=== PATIENT | female | born 2000 | race African-American/Black ===

== ENCOUNTER 2023-02-22 10:37 | Inpatient (IN) | payer OTHER ==
[2023-02-22] MEDS ORDERED: hydrALAZINE 20 MG/ML VIAL SLOW IVP PRN ×2 (10:56→16:17)
[2023-02-22] MEDS ORDERED: Calcium Gluc 4.6 MEQ/10 ML (100 MG/ML) SLOW IVP PRN ×2 (11:21→16:17)
[2023-02-22] MEDS ORDERED: Labetalol HCl 100 MG/20 ML VIAL SLOW IVP PRN ×3 (11:21)
[2023-02-22] MEDS ORDERED: Lorazepam 2 MG/ML VIAL SLOW IVP PRN ×2 (11:21→16:17)
[2023-02-22] MEDS ORDERED: Labetalol HCl 100 MG/20 ML VIAL ONE (11:22)
[2023-02-22] MEDS ORDERED: Magnesium Sulfate 20 gm/500 ml 20 GM/500 ML BAG ONE (11:23)
[2023-02-22] MEDS ORDERED: Magnesium Sulfate 20 gm/500 ml 20 GM/500 ML BAG IVPB SCH (11:30)
[2023-02-22] MEDS ORDERED: Lactated Ringer's 1,000 ML IV SCH (11:30)
[2023-02-22 12:20] VITALS: BMI 30.5
[2023-02-22 12:42] LABS: Hemoglobin 10.9 g/dL (12.0-15.5); Mean Corpuscular HGB CONC 34.1 g/dL (32.0-36.0); Mean Corpuscular Hemoglobin 28.3 pg (27.0-33.0); Mean Corpuscular Volume 83.1 fl (81.6-98.3); Platelet Count 52 10x3/uL (150-450); RBC Distribution Width 14.8 % (11.5-14.5); Red Blood Cell (RBC) Count 3.85 10x6/uL (3.90-5.03); White Blood Cell (WBC) Count 5.8 10x3/uL (3.5-10.5)
[2023-02-22 12:46] LABS: ALT (SGPT) 60 U/L (8-55); AST (SGOT) 72 U/L (5-34); Albumin 3.1 g/dL (3.5-5.0); Alkaline Phosphatase 173 U/L (40-100); Anion Gap 13 mmol/L (10-20); BUN (Urea Nitrogen) 9 mg/dL (7.0-18.7); Bilirubin, Total 0.9 mg/dL (0.2-1.2); Calc. Creatinine Clearance 195 mL/min (70-130); Calcium 8.7 mg/dL (7.8-10.44); Carbon Dioxide 20 mmol/L (22-29); Chloride 109 mmol/L (98-107); Estimated GFR 119; Globulin 2.7 g/dL (2.4-3.5); Glucose 68 mg/dL (70-105); Potassium 3.7 mmol/L (3.5-5.1); Protein, Total 5.8 g/dL (6.0-8.3); Sodium 138 mmol/L (136-145)
[2023-02-22] MEDS ORDERED: Labetalol HCl 100 MG TAB PO SCH (13:00)
[2023-02-22 13:30] LABS: Hematocrit 32.3 % (34.9-44.5); Hemoglobin 10.9 g/dL (12.0-15.5); Mean Corpuscular HGB CONC 33.7 g/dL (32.0-36.0); Mean Corpuscular Hemoglobin 28.1 pg (27.0-33.0); Mean Corpuscular Volume 83.2 fl (81.6-98.3); Mean Platelet Volume 10.5 fl (7.4-10.4); Platelet Count 52 10x3/uL (150-450); RBC Distribution Width 14.9 % (11.5-14.5); Red Blood Cell (RBC) Count 3.88 10x6/uL (3.90-5.03); White Blood Cell (WBC) Count 6.1 10x3/uL (3.5-10.5)
[2023-02-22] MEDS ORDERED: hydrALAZINE 20 MG/ML VIAL ONE (13:30)
[2023-02-22] MEDS ORDERED: CEFAZOLIN 2 GM VIAL ONE (13:31)
[2023-02-22] MEDS ORDERED: SUGAMMADEX SODIUM 200 MG/2 ML VIAL ONE (13:47)
[2023-02-22] MEDS ORDERED: Fentanyl 250 MCG/5 ML VIAL ONE (13:47)
[2023-02-22] MEDS ORDERED: PROPOFOL 20 ML ONE (13:47)
[2023-02-22] MEDS ORDERED: Succinylcholine 200 MG/10 ml SYRINGE FS ONE (13:48)
[2023-02-22] MEDS ORDERED: Ondansetron PF 4 MG/2 ML Vial ONE (13:48)
[2023-02-22] MEDS ORDERED: Dexamethasone 4 mg/ml Vial ONE (13:48)
[2023-02-22] MEDS ORDERED: Rocuronium Bromide 10 MG/ML (10ML VIAL) ONE (13:48)
[2023-02-22] MEDS ORDERED: Tranexamic Acid 1,000 MG/10 ML VIAL ONE (14:08)
[2023-02-22] MEDS ORDERED: Misoprostol 200 MCG TAB ONE ×2 (14:08→14:12)
[2023-02-22] MEDS ORDERED: KETAMINE 100 MG/ML (5ML VIAL) ONE (14:26)
[2023-02-22] MEDS ORDERED: Oxytocin 10 UNITS/ML VIAL ONE (14:26)
[2023-02-22] MEDS ORDERED: fentaNYL 50 mcg/mL 1 mL Vial SLOW IVP PRN (14:57)
[2023-02-22] MEDS ORDERED: Ondansetron PF 4 MG/2 ML Vial IVP PRN ×3 (14:57→16:17)
[2023-02-22] MEDS ORDERED: Meperidine HCl/PF 25 MG/ML VIAL SLOW IVP PRN (14:57)
[2023-02-22] MEDS ORDERED: diphenhydrAMINE 25 MG CAP PO PRN ×2 (14:59→16:17)
[2023-02-22] MEDS ORDERED: Naloxone HCl 0.4 mg/ml Vial IV PRN (14:59)
[2023-02-22] MEDS ORDERED: diphenhydrAMINE 50 MG/ML VIAL IVP PRN (14:59)
[2023-02-22] MEDS ORDERED: Promethazine HCl 25 MG/ML VIAL IM PRN ×2 (14:59→16:17)
[2023-02-22] MEDS ORDERED: FENTANYL 500 MCG/10 ML VIAL 2,000 MCG in Sodium Chloride 0.9% 60 ML IV PRN (14:59)
[2023-02-22] MEDS ORDERED: diphenhydrAMINE 50 MG/ML VIAL IM PRN (14:59)
[2023-02-22] MEDS ORDERED: Communication Order-Pharmacy FS SCH (15:00)
[2023-02-22] MEDS ORDERED: FENTANYL 500 MCG/10 ML VIAL 1,000 MCG in Sodium Chloride 0.9% 30 ML IV PRN (15:15)
[2023-02-22] MEDS ORDERED: Bisacodyl 10 MG SUPP PR PRN (16:17)
[2023-02-22] MEDS ORDERED: HYDROcodone/Acetaminophen 5/325 mg Tablet PO PRN (16:17)
[2023-02-22] MEDS ORDERED: Boostrix 0.5 ML (Tdap) VIAL (>/=7 yrs of age) IM ONE (16:17)
[2023-02-22] MEDS ORDERED: Meperidine HCl/PF 25 MG/ML VIAL IM PRN (16:17)
[2023-02-22] MEDS ORDERED: Lanolin Ointment 7 GM TUBE TOP PRN (16:17)
[2023-02-22] MEDS ORDERED: Simethicone Chewable 80 MG TAB PO PRN (16:17)
[2023-02-22] MEDS ORDERED: Oxytocin 30 units/NS 500 ML 500 ML IV SCH (16:17)
[2023-02-22] MEDS ORDERED: ADMIXTURE FEE IVPB SCH (17:00)
[2023-02-22] MEDS ORDERED: NICARDIPINE IVPB SCH (17:00)
[2023-02-22] MEDS ORDERED: SODIUM CHLORIDE IVPB SCH (17:00)
[2023-02-22] MEDS ORDERED: niCARdipine 25 MG in Sodium Chloride 0.9% 250 ML 250 ML IVPB SCH (17:15)
[2023-02-22] MEDS: Labetalol HCl 100 MG TAB PO SCH (18:18)
[2023-02-22] MEDS: Magnesium Sulfate 20 gm/500 ml 20 GM/500 ML BAG IVPB SCH (21:12)
[2023-02-22] MEDS: Ibuprofen 800 MG TAB PO SCH (21:13)
[2023-02-22] MEDS: Docusate 100 MG CAP PO SCH (21:13)
[2023-02-22] MEDS: Ferrous Sulfate 325 MG TAB PO SCH (21:13)
[2023-02-22] MEDS: niCARdipine 25 MG in Sodium Chloride 0.9% 250 ML 250 ML IVPB SCH (21:15)
[2023-02-23] MEDS: Labetalol HCl 100 MG TAB PO SCH (03:28)
[2023-02-23 04:16] LABS: Bilirubin Neg (Negative); Blood, Urine 25 (Negative); Clarity Clear (Clear); Glucose, Urine (Dipstick) Normal (Negative); Ketone, Urine Negative (Negative); Leukocyte 25 (Negative); Nitrite Negative (Negative); Protein, Urine (Dipstick) 100 mg/dl (Neg-Trace); Urobilinogen Normal mg/dL (Less than 2)
[2023-02-23] MEDS: niCARdipine 25 MG in Sodium Chloride 0.9% 250 ML 250 ML IVPB SCH ×3 (04:21→13:06)
[2023-02-23 04:38] LABS: ALT (SGPT) 48 U/L (8-55); AST (SGOT) 46 U/L (5-34); Albumin 3.1 g/dL (3.5-5.0); Alkaline Phosphatase 155 U/L (40-100); Anion Gap 16 mmol/L (10-20); BUN (Urea Nitrogen) 10 mg/dL (7.0-18.7); Bilirubin, Total 0.5 mg/dL (0.2-1.2); Calc. Creatinine Clearance 188 mL/min (70-130); Carbon Dioxide 16 mmol/L (22-29); Chloride 106 mmol/L (98-107); Estimated GFR 113; Globulin 2.8 g/dL (2.4-3.5); Glucose 119 mg/dL (70-105); Potassium 4.1 mmol/L (3.5-5.1); Protein, Total 5.9 g/dL (6.0-8.3); Sodium 134 mmol/L (136-145)
[2023-02-23 04:42] LABS: INR-International Normal Ratio 0.9; Magnesium 6.2 mg/dL (1.7-2.2); PTT 26.3 sec (22.0-33.0); Prothrombin Time 9.2 sec (9.5-12.1)
[2023-02-23 04:56] LABS: RBC/HPF 0-3 HPF (0-3); Squamous Epithelial 0-3 HPF (0-3)
[2023-02-23 05:00] LABS: #Monocytes 0.5 10x3/uL (0.0-1.1); #Neutrophils 9.1 10x3/uL (1.5-8.4); %Lymphocytes 8.8 % (18.0-47.0); %Neutrophils 85.7 % (40.0-75.0); Hematocrit 30.4 % (34.9-44.5); Hemoglobin 10.6 g/dL (12.0-15.5); Mean Corpuscular HGB CONC 34.9 g/dL (32.0-36.0); Mean Corpuscular Hemoglobin 28.8 pg (27.0-33.0); Mean Corpuscular Volume 82.6 fl (81.6-98.3); Mean Platelet Volume 12.5 fl (7.4-10.4); Platelet Count 111 10x3/uL (150-450); RBC Distribution Width 14.9 % (11.5-14.5); Red Blood Cell (RBC) Count 3.68 10x6/uL (3.90-5.03); White Blood Cell (WBC) Count 10.6 10x3/uL (3.5-10.5)
[2023-02-23 05:02] LABS: Bacteria/HPF 1+ HPF (None Seen)
[2023-02-23 05:03] LABS: White Blood Cell Cast 0-3 LPF (None Seen)
[2023-02-23 05:29] LABS: Platelet Adequacy Comment Appears Decreased; RBC Morph Comment Within Normal Limits
[2023-02-23] MEDS: Ibuprofen 800 MG TAB PO SCH ×3 (07:32→21:41)
[2023-02-23] MEDS: Magnesium Sulfate 20 gm/500 ml 20 GM/500 ML BAG IVPB SCH (08:19)
[2023-02-23] MEDS ORDERED: Labetalol HCl 100 MG/20 ML VIAL SLOW IVP PRN ×2 (08:27)
[2023-02-23] MEDS: Docusate 100 MG CAP PO SCH ×2 (08:36→21:41)
[2023-02-23] MEDS: Ferrous Sulfate 325 MG TAB PO SCH (08:36)
[2023-02-23] MEDS: Labetalol HCl 200 MG TAB PO SCH ×3 (08:36→23:58)
[2023-02-23] MEDS: Prenatal Vitamin 1 TAB PO SCH (08:36)
[2023-02-23] MEDS ORDERED: NIFEdipine XL 30 MG ER.TAB PO SCH ×2 (09:00→11:15)
[2023-02-23] MEDS: HYDROcodone/Acetaminophen 5/325 mg Tablet PO PRN (18:36)
[2023-02-24] MEDS: Ferrous Sulfate 325 MG TAB PO SCH ×3 (00:48→21:17)
[2023-02-24] MEDS: Ibuprofen 800 MG TAB PO SCH ×3 (05:40→21:17)
[2023-02-24] MEDS: Docusate 100 MG CAP PO SCH ×2 (08:40→21:17)
[2023-02-24] MEDS: NIFEdipine XL 60 MG ER.TAB PO SCH (08:40)
[2023-02-24] MEDS: Prenatal Vitamin 1 TAB PO SCH (08:40)
[2023-02-24] MEDS: Labetalol HCl 200 MG TAB PO SCH ×3 (08:40→18:17)
[2023-02-25] MEDS: HYDROcodone/Acetaminophen 5/325 mg Tablet PO PRN (00:11)
[2023-02-25] MEDS: Labetalol HCl 200 MG TAB PO SCH ×3 (01:52→16:58)
[2023-02-25] MEDS: Ibuprofen 800 MG TAB PO SCH ×3 (06:22→21:02)
[2023-02-25] MEDS: NIFEdipine XL 60 MG ER.TAB PO SCH (09:54)
[2023-02-25] MEDS: Docusate 100 MG CAP PO SCH ×2 (09:54→21:02)
[2023-02-25] MEDS: Prenatal Vitamin 1 TAB PO SCH (09:54)
[2023-02-25] MEDS: Ferrous Sulfate 325 MG TAB PO SCH ×2 (09:55→21:02)
[2023-02-26] MEDS: Labetalol HCl 200 MG TAB PO SCH ×2 (00:23→09:50)
[2023-02-26 03:46] LABS: #Eosinphils 0.1 10x3/uL (0.0-0.5); #Monocytes 0.4 10x3/uL (0.0-1.1); #Neutrophils 3.8 10x3/uL (1.5-8.4); %Basophils 0.2 % (0.0-2.0); %Eosinophils 2.2 % (0.0-6.0); %Monocytes 7.2 % (0.0-10.0); %Neutrophils 64.7 % (40.0-75.0); Hematocrit 27.5 % (34.9-44.5); Hemoglobin 9.1 g/dL (12.0-15.5); Mean Corpuscular HGB CONC 33.1 g/dL (32.0-36.0); Mean Corpuscular Hemoglobin 28.5 pg (27.0-33.0); Mean Corpuscular Volume 86.2 fl (81.6-98.3); Mean Platelet Volume 11.3 fl (7.4-10.4); Platelet Count 142 10x3/uL (150-450); RBC Distribution Width 15.3 % (11.5-14.5); Red Blood Cell (RBC) Count 3.19 10x6/uL (3.90-5.03); White Blood Cell (WBC) Count 5.8 10x3/uL (3.5-10.5)
[2023-02-26 04:02] LABS: ALT (SGPT) 94 U/L (8-55); AST (SGOT) 106 U/L (5-34); Albumin 3.2 g/dL (3.5-5.0); Alkaline Phosphatase 117 U/L (40-100); Anion Gap 13 mmol/L (10-20); BUN (Urea Nitrogen) 12 mg/dL (7.0-18.7); Bilirubin, Total 0.2 mg/dL (0.2-1.2); Calc. Creatinine Clearance 168 mL/min (70-130); Carbon Dioxide 23 mmol/L (22-29); Chloride 107 mmol/L (98-107); Estimated GFR 99; Globulin 2.7 g/dL (2.4-3.5); Glucose 89 mg/dL (70-105); Potassium 4.1 mmol/L (3.5-5.1); Protein, Total 5.9 g/dL (6.0-8.3); Sodium 139 mmol/L (136-145)
[2023-02-26] MEDS: Ibuprofen 800 MG TAB PO SCH ×3 (05:46→21:43)
[2023-02-26] MEDS: Ferrous Sulfate 325 MG TAB PO SCH ×2 (09:50→21:43)
[2023-02-26] MEDS: Docusate 100 MG CAP PO SCH ×2 (09:50→21:43)
[2023-02-26] MEDS: Prenatal Vitamin 1 TAB PO SCH (09:50)
[2023-02-26] MEDS: NIFEdipine XL 60 MG ER.TAB PO SCH (09:51)
[2023-02-26] MEDS ORDERED: Labetalol HCl 100 MG TAB PO SCH (11:15)
[2023-02-26] MEDS ORDERED: NIFEdipine XL 30 MG ER.TAB PO SCH (14:00)
[2023-02-26] MEDS ORDERED: Labetalol HCl 200 MG TAB PO SCH (17:00)
[2023-02-27] MEDS: Labetalol HCl 200 MG TAB PO SCH ×2 (00:32→08:34)
[2023-02-27] MEDS: Ibuprofen 800 MG TAB PO SCH (06:17)
[2023-02-27] MEDS: Prenatal Vitamin 1 TAB PO SCH (08:33)
[2023-02-27] MEDS: Docusate 100 MG CAP PO SCH (08:33)
[2023-02-27] MEDS: Ferrous Sulfate 325 MG TAB PO SCH (08:33)
[2023-02-27] MEDS ORDERED: NIFEdipine XL 90 MG ER.TAB PO SCH ×2 (09:00)
[2023-02-27 14:31] VITALS: BP 142/86; TEMP 98.6
== END 2023-02-27 13:30 | disposition home or self-care (01) | DRG 787 ==
LOC: CSHLD/OP 10:37 → CSHLD 11:38 → CSHICU 17:39 → CSHANTE 02-23 18:21
PROVIDERS: ADMIT Family Medicine; ATTEND Family Medicine
PROC: 10D00Z1 Extraction of Products of Conception, Low, Open Approach (ICD-10-PCS; principal; 2023-02-22)
PROC: 30233R1 Transfusion of Nonautologous Platelets into Peripheral Vein, Percutaneous Approach (ICD-10-PCS; 2023-02-22)
DX: O34.13 Maternal care for benign tumor of corpus uteri, third trimester (principal); O60.10X0 Preterm labor with preterm delivery, unspecified trimester, not applicable or unspecified; Z3A.35 35 weeks gestation of pregnancy; Z37.0 Single live birth; O14.24 HELLP syndrome, complicating childbirth; O90.89 Other complications of the puerperium, not elsewhere classified; M79.89 Other specified soft tissue disorders; E88.09 Other disorders of plasma-protein metabolism, not elsewhere classified; O16.4 Unspecified maternal hypertension, complicating childbirth
CPT/HCPCS: 36415; 36430; 51702; 76819; 80053; 81001; 82570; 83010; 83615; 83735; 84156; 84550; 85025; 85027; 85610; 85730; 86850; 86900; 86901; 88307; 99285; J0360; J1100; J2405; J2590; J2704; J3010; J3475; J3490; J7050; P9035

== ENCOUNTER 2024-02-06 12:31 | Emergency (ER) | payer OTHER, SELFPAY ==
[2024-02-06] MEDS ORDERED: Lidocaine 1% (PF) 30 ML VIAL ONE (13:19)
[2024-02-06] MEDS ORDERED: Bacitracin 1 PK ONE (14:55)
== END 2024-02-06 15:09 | disposition home or self-care (01) ==
LOC: CSHERS 12:31
DX: Z48.01 Encounter for change or removal of surgical wound dressing (principal)
CPT/HCPCS: 99284